=== PATIENT | female | born 1950 | race Caucasian/White ===

== ENCOUNTER 2022-09-10 07:23 | Outpatient (CLI) | payer MEDICARE, BC, OTHER, SELFPAY | END 2022-09-10 07:24 | disposition home or self-care (01) | PROVIDERS: Visit Provider Family Medicine | DX: M54.16 Radiculopathy, lumbar region (principal); M48.062 Spinal stenosis, lumbar region with neurogenic claudication | CPT/HCPCS: 62323; J0702; Q9966 ==

== ENCOUNTER 2022-11-12 07:26 | Outpatient (CLI) | payer MEDICARE, BC, OTHER, SELFPAY | END 2022-11-12 07:27 | disposition home or self-care (01) | PROVIDERS: Visit Provider Family Medicine | DX: M54.16 Radiculopathy, lumbar region (principal); M51.36 Other intervertebral disc degeneration, lumbar region | CPT/HCPCS: 64483; J1100; Q9966 ==